=== PATIENT | female | born 1945 | race Caucasian/White ===

== ENCOUNTER 2021-05-06 17:01 | Emergency (ER) | payer MEDICARE, OTHER ==
[2021-05-06 20:26] LABS: HEMOGLOBIN 11.8 gm/dl (12.3-15.3); RED BLOOD COUNT 4.29 M/UL (4.00-5.10)
== END 2021-05-06 23:23 | disposition home or self-care (01) ==
LOC: ER1 17:01
PROVIDERS: Physician Assistant
DX: R30.0 Dysuria (principal); I48.91 Unspecified atrial fibrillation; Z95.0 Presence of cardiac pacemaker; Z88.6 Allergy status to analgesic agent; Z88.1 Allergy status to other antibiotic agents; Z79.899 Other long term (current) drug therapy
CPT/HCPCS: 80053; 81001; 83690; 85025; 87086; 99283

== ENCOUNTER 2022-06-12 16:33 | Emergency (ER) | payer MEDICARE | END 2022-06-12 19:59 | disposition left against medical advice (07) | LOC: ER1 16:33 | DX: Z53.21 Procedure and treatment not carried out due to patient leaving prior to being seen by health care provider (principal) ==